=== PATIENT | female | born 1960 | race Hispanic/Latino ===

== ENCOUNTER 2016-07-02 15:56 | Emergency (ER) | payer OTHER ==
[~2016-07-02] VITALS: Ht 157.5 cm; Wt 68.2 kg
[~2016-07-02 15:56] MED LIST: ALBU8.5H2 IH; BECL8.7A6 INH; HYDR-4003 PO
[2016-07-02 16:13] VITALS: BP 144/84; PULSE 80; RESP 16; O2SAT 97
--- NOTE | 2016-07-02 16:52 | ED.REPORT ---
HPI-Abd Pain F 40 and Over Date of Service Jul 02, 2016 ED Provider: Angelo Rand MD 55 year old female with a history of DM, asthma, and DVT/PE off Xarelto now for some time, who presents to the ED due to 1 week of intermittent diffuse abd pain. The pain is exacerbated with walking. Pt has nausea and vomiting with pain. Pt denies dysuria, constipation, diarrhea. Pt has been seen at [facility] previously for this over the last few years with no known cause for pain. Her last visit was yesterday. She also complains of vaginal discharge, but had a pelvic exam yesterday. Pelvic US this week was normal. Nursing Notes Stated Complaint: STOMACH PAIN Chief Complaint: Female Abdominal Pain Nursing Notes Reviewed: Yes Allergies: Coded Allergies: No Known Allergies (Verified Allergy, Unknown, 12/02/14) Scheduled Beclomethasone Dipropionate (Qvar) 8.7 Gm Aer.w.adap 2 PUFFS INH BID Scheduled PRN Albuterol HFA (Proair HFA) 8.5 Gm Hfa.aer.ad 2 PUFFS IH Q4 PRN PRN For Wheezing Hydrocodone-Acetaminophen 5-325 mg (Hydrocodone-Acetaminophen 5-325 mg) 1 Each Tablet 1 TABLET PO Q4H PRN PRN For Pain General Time Seen by MD: 16:51 Chief Complaint Abdominal pain Hx Obtained From: Patient, Other family... Arrived By: Walk-in Sudden in Onset?: No Symptom Duration: Intermittent Location: : Diffuse Quality: Painful Severity: Current: Moderate Associated with: Reports: Nausea, Vomiting Past Medical History Past Medical History Left lower extremity DVT, PE High cholesterol Anemia Peripheral neuropathy Reports: Asthma, Diabetes mellitus, Hypertension Past Surgical History Reports: Smoking History Never Smoker Social History Alcohol Use: Denies alcohol use Drug Use: Denies drug use Ambulatory Status Independent Review of Systems Basic Review of Systems Eyes: Vision NL, No discharge ENT: Hearing NL, No pain, No nasal congestion, No pharyngeal pain Allergy / Immune: No allergy Neurologic: NL mental status, No weakness, No numbness Psychiatric: Normal thought content Constitutional: Denies: Fever Respiratory: Denies: Shortness of breath Cardiovascular: Denies: Chest pain GI: Reports: Abdominal pain, Nausea, Vomiting, Denies: Constipation, Diarrhea Female: Reports: Vaginal discharge, Denies: Dysuria, Flank pain Complete sys rev & neg: except as marked. Physical Exam Vital Signs Vital Signs (First) Date Time Temp Pulse Resp B/P Pulse Ox O2 Delivery O2 Flow Rate FiO2 07/02/16 16:13 37.4 80 16 144/84 97 Room Air Initial VS: Reviewed Head / Eyes: Atraumatic, Normocephalic, PERRL ENT: Mucous membranes moist, Conjunctiva normal, No scleral icterus Neck: Supple, Full range of motion Extremities: Vascular intact, Neuro intact, No swelling, No tenderness Skin: Warm, Dry, No cyanosis Neurologic: Alert, Oriented, Nonfocal Psychiatric: Mood/affect normal, Behavior normal, Normal thought content General/Constitutional: Awake, Alert Respiratory / Chest: Breath sounds NL, Breath sounds = bilat, No respiratory distress, No rales, No rhonchi, No wheezing, No stridor Cardiovascular: Heart rate NL, Regular rhythm, Heart sounds NL, Peripheral circulation NL Abdomen: Soft, No guarding, No rebound, No palpable mass Tenderness/Guarding/Rebound: Positive: Tender diffuse Back: Inspection NL, No CVA tenderness Interpretation & Diagnostics Lab Results Interpretation Result Diagram: 07/02/16 1745 Test 07/02/16 16:55 07/02/16 17:35 07/02/16 17:45 White Blood Count 12.8th/mm3 (3.8-10.1) Red Blood Count 4.72mil/mm3 (3.90-5.20) Hemoglobin 13.6g/dL (12.0-15.6) Hematocrit 40.4% (35.0-46.0) Mean Corpuscular Volume 85.6fL (81-100) Mean Corpuscular Hemoglobin 28.8pg (27.0-35.0) Mean Corpuscular Hemoglobin Concent 33.7% (32.0-37.0) Red Cell Distribution Width 13.1% (12.3-15.4) Platelet Count 272bil/L (150-400) Neutrophils (%) (Auto) 64.1% (40-74) Lymphocytes (%) (Auto) 24.8% (14-46) Monocytes (%) (Auto) 7.4% (4-12) Eosinophils (%) (Auto) 3.1% (0-5) Basophils (%) (Auto) 0.4% (0-3) Discharge & Departure Shift Change Sign-Out Patient Care Transferred: Yes Discussed Complaint(s): Yes Laboratory Evaluation: Ordered, not yet done Primary Impression: Abdominal pain Referrals: Justina Henriquez MD (PCP) Care Transferred to: Dr. Blackburn Care Transferred at: 18:01 Scribe Attestation Portions of this note were transcribed by Kimi Stauffer. I, (Dr. Rand) personally performed the history, physical exam and medical decision-making; I reviewed and confirmed the accuracy of the information in the transcribed note. Signed by: Kimi Stauffer. 07/02/2016, 1700 copies to: Justina Henriquez MD, Kirk H MD Jul 02, 2016 16:52 Kimi Stauffer Jul 02, 2016 17:05
[2016-07-02] MEDS ORDERED: 0.9% Sodium Chloride 1,000 ML IV ONE (17:02)
[2016-07-02] MEDS ORDERED: Acetaminophen IV 1,000 MG in IV Premix 1 EACH IV ONE (17:05)
[2016-07-02] MEDS ORDERED: Haloperidol 5 mg/mL Inj IVPUSH ONE (17:05)
[2016-07-02] MEDS ORDERED: Ondansetron 2 mg/mL 2 mL Inj IVPUSH ONE (17:05)
[2016-07-02] MEDS ORDERED: Dexamethasone 10 mg/mL Inj IVPUSH ONE (17:05)
[2016-07-02] MEDS ORDERED: MetoCLOpramide 5 mg/mL 2 mL Inj IVPUSH ONE (17:05)
[2016-07-02 17:53] LABS: BASOPHILS % (AUTO) 0.4 % (0-3); EOSINOPHILS % (AUTO) 3.1 % (0-5); MONOCYTES % (AUTO) 7.4 % (4-12); Mean Corpuscular Hemoglobin 28.8 pg (27.0-35.0); Mean Corpuscular Volume 85.6 fL (81-100); NEUTROPHILS % (AUTO) 64.1 % (40-74); Platelet Count 272 bil/L (150-400)
[2016-07-02 18:37] LABS: APPEARANCE,URINE CLEAR (CLEAR,HAZY); COLOR,URINE YELLOW (YELLOW); OCCULT BLOOD,URINE NEGATIVE (NEGATIVE); UROBILINOGEN,URINE NORMAL (NORMAL)
[2016-07-02 19:05] VITALS: BP 135/61; RESP 20; O2SAT 99
[2016-07-02] MEDS ORDERED: HYOS0.1281 SL (19:22)
[2016-07-02] MEDS ORDERED: FAMO20T PO (19:22)
[2016-07-02 19:44] VITALS: BP 135/61; PULSE 80; RESP 20; O2SAT 99
[2016-07-12] MEDS ORDERED: LOVA20TA PO (14:34)
[2016-07-12] MEDS ORDERED: GABA-502 PO (14:34)
[2016-07-12] MEDS ORDERED: MAGN250T37 PO (14:34)
[2016-07-12] MEDS ORDERED: GLIM4TAB2 PO (14:35)
[2016-07-12] MEDS ORDERED: FAMO20TA4 PO (14:35)
== END 2016-07-02 19:46 | disposition home or self-care (01) ==
LOC: SED 15:56
DX: R10.12 Left upper quadrant pain (principal); R11.2 Nausea with vomiting, unspecified; N89.8 Other specified noninflammatory disorders of vagina; J45.909 Unspecified asthma, uncomplicated; E11.9 Type 2 diabetes mellitus without complications; I10 Essential (primary) hypertension; E78.00 Pure hypercholesterolemia, unspecified; Z86.718 Personal history of other venous thrombosis and embolism; Z86.711 Personal history of pulmonary embolism
CPT/HCPCS: 36415; 80053; 81000; 83690; 83735; 85025; 96361; 96374; 96375; 99285; J0131; J1100; J1200; J2765; J7030

== ENCOUNTER 2016-09-09 11:58 | Emergency (ER) | payer OTHER ==
[~2016-09-09] VITALS: Ht 160 cm; Wt 72.7 kg
[~2016-09-09 11:58] MED LIST changes: +FAMO20T PO; +FAMO20TA4 PO; +GABA-502 PO; +GLIM4TAB2 PO; +HYOS0.1281 SL; +LOVA20TA PO; +MAGN250T37 PO
[2016-09-09 12:03] VITALS: BP 153/81; PULSE 68; RESP 16; O2SAT 94
[2016-09-09] MEDS ORDERED: ASPI-973 PO (12:08)
[2016-09-09] MEDS ORDERED: LEVO112T4 PO (12:08)
--- NOTE | 2016-09-09 12:17 | ED.REPORT ---
HPI-General Illness Date of Service Sep 09, 2016 ED Provider: Joseline Santos MD Pt is a 55 y.o. female with a hx of DVT/PE, DM, HTN, and peripheral neuropathy who presents to the ED from c/o intermittent chest pain described as tightness onset today. Pt reports associated intermittent SOB and intermittent left leg pain and swelling. She states the swelling typically occurs with movement or with long periods of standing. She reports having a DVT 2-3 years ago in her left leg and states her current sx are similar. Pt discontinued anticoagulant use approximately 1 year after her last DVT. Nursing Notes Stated Complaint: LEFT LEG SWELLING/CHEST PAIN Chief Complaint: Chest Pain Nursing Notes Reviewed: Yes Allergies: Coded Allergies: No Known Allergies (Verified Allergy, Unknown, 09/09/16) Scheduled Aspirin (Aspirin) 81 Mg Tablet 81 MG PO DAILY Beclomethasone Dipropionate (Qvar) 8.7 Gm Aer.w.adap 2 PUFFS INH BID Gabapentin (Gabapentin) 300 Mg Capsule 300 MG PO DAILY Glimepiride (Glimepiride) 4 Mg Tablet 4 MG PO BIDAC Levothyroxine (Levothyroxine) 112 Mcg Tablet 112 MCG PO DAILY Lovastatin (Lovastatin) 20 Mg Tablet 20 MG PO HS Scheduled PRN Albuterol HFA (Proair HFA) 8.5 Gm Hfa.aer.ad 2 PUFFS IH Q4 PRN PRN For Wheezing Miscellaneous Medications Magnesium Oxide (Magnesium Oxide) 250 Mg Tablet 250 MG PO General Time Seen by MD: 12:16 Chief Complaint Chest pain Hx Obtained From: Patient Arrived By: Walk-in Sudden in Onset?: Yes Symptom Duration: Since onset Location: : Chest Quality: Painful (tightness) Past Medical History Past Medical History Left lower extremity DVT, PE High cholesterol Anemia Peripheral neuropathy Reports: Asthma, Diabetes mellitus, Hypertension Past Surgical History Reports: Smoking History Never Smoker Social History Alcohol Use: Denies alcohol use Drug Use: Denies drug use Ambulatory Status Independent Review of Systems Full Review of Systems Respiratory: Reports: Shortness of breath Cardiovascular: Reports: Chest pain (Tightness) Musculoskeletal: Reports: Extremity pain (Left lower extremity), Extremity swelling (Left lower extremity) Complete sys rev & neg: except as marked. Physical Exam Vital Signs Vital Signs Date Time Temp Pulse Resp B/P Pulse Ox O2 Delivery O2 Flow Rate FiO2 09/09/16 12:37 67 14 133/50 100 Room Air 09/09/16 12:03 36.6 68 16 153/81 94 Room Air Initial VS: Reviewed Head / Eyes: Atraumatic, Normocephalic Abdomen / GI: No distention Skin: Warm, Dry, No cyanosis Neurologic: Alert, Oriented, Nonfocal Psychiatric: Mood/affect normal, Behavior normal, Normal thought content General/Constitutional: Awake, Alert, No acute distress, Well appearing, Well developed, Well hydrated, Well nourished, Not toxic appearing Respiratory / Chest: Atraumatic, Breath sounds NL, Breath sounds = bilat, No respiratory distress, No wheezing Cardiovascular: Heart rate NL, Regular rhythm, Heart sounds NL, No murmurs, Peripheral circulation NL Lower Extremity / Pelvis / MS: Atraumatic, Inspection NL, Neurologic intact, Vascular intact Left Leg / Calf: Negative: L calf > R calf, Tenderness present... Ankle / Foot: Atraumatic, Inspection NL, Full range of motion, No swelling, Neurologic intact, Vascular intact Right and left ankles are equal with no current edema Re-Eval/Medical Decision Med Decision/Clinical Course Presents complaining of pain in the left lower extremity with dependent edema developing near the end of the day tenderness when she is walking as the edema is worse describes episodes of hot and cold leg in comparison to the right leg. She did have a large DVT in that leg a couple of years ago likely is experiencing some edema secondary to venous insufficiency due to the prior DVT. There is no evidence of current DVT. She has no evidence of arterial insufficiency with bounding inguinal pulses and easily palpable posterior tibialis and dorsalis pedis pulses. With her diabetes, peripheral neuropathy may also be a contributing factor to the recurrent pain. Discussed functional compression stockings. Recommended she follow up with her primary care physician. Reassured today regarding ultrasound findings Source of Hx: Old records Time of Eval: 13:44 Re-Evaluation/Progress Note: Pt rechecked. Discussed US and plan for discharge, pt understands and agrees with plan. Counseled Regarding: Diagnosis, Lab results Discharge & Departure Primary Impression: Venous insufficiency of left lower extremity Disposition: Home Discharge Condition All VS Reviewed: Yes Condition: Improved Additional Instructions: Thank you for entrusting us with your care today. Your ultrasound was reassuring and no DVT was seen.You appear to have venous insufficiency. You likley also have a component of peripheral neuropathy from your diabetes as well. Take Tylenol as directed for pain. Look into compression stockings for athletes at a sporting good store. I hope both you get well soon! Referrals: Justina Henriquez MD (PCP) Ash Attestation Portions of this note were transcribed by Elkin Rodriguez. I, Dr. Houston personally performed the history, physical exam and medical decision-making; I reviewed and confirmed the accuracy of the information in the transcribed note. Signed by: Ash Gabriel, 09/09/16 and 1345 copies to: Justina Henriquez MD, Shawna L MD Sep 09, 2016 12:17 ELKIN RODRIGUEZ Sep 09, 2016 12:23
[2016-09-09 12:37] VITALS: BP 133/50; PULSE 67; RESP 14; O2SAT 100
--- NOTE | 2016-09-09 13:52 | DRSVH ---
PROCEDURE: US VEINOUS LEG DUPLEX UNILATERAL, LEFT INDICATIONS: 55-year-old female with history of deep venous thrombosis and pulmonary embolism, now w ith left calf pain. TECHNIQUE: Real-time imaging, as well as color and pulse Doppler interrogation, were performed of the lower extr emity deep veins from the inguinal ligament to the popliteal fossa. COMPARISON: [facility], US, US VENOUS LEG DPLX UNI LT, 07/08/2015, 11:34. FINDINGS: The deep veins are normally compressible, and free of intraluminal thrombus. Color and pu lse Doppler demonstrate normal phasic intraluminal flow. There is normal augmentation response to di stal compression maneuver. IMPRESSION: No sonographic evidence for left lower extremity deep venous thrombosis. Dictated by: Shankar Dominguez M.D. on 09/09/2016 at 13:50 Approved by: Shankar Dominguez M.D. on 09/09/2016 at 13:50
[2016-09-09 13:53] VITALS: BP 136/59; RESP 14; O2SAT 100
== END 2016-09-09 13:58 | disposition home or self-care (01) ==
LOC: SED 11:58
DX: I87.2 Venous insufficiency (chronic) (peripheral) (principal); R07.89 Other chest pain; I10 Essential (primary) hypertension; E11.40 Type 2 diabetes mellitus with diabetic neuropathy, unspecified; J45.909 Unspecified asthma, uncomplicated; E78.00 Pure hypercholesterolemia, unspecified; Z86.711 Personal history of pulmonary embolism; Z86.73 Personal history of transient ischemic attack (TIA), and cerebral infarction without residual deficits; Z79.82 Long term (current) use of aspirin; Z79.51 Long term (current) use of inhaled steroids